=== PATIENT | male | born 1980 | race Caucasian/White ===

== ENCOUNTER 2021-10-01 15:45 | Emergency (ER) | payer OTHER ==
[~2021-10-01] VITALS: Wt 59.1 kg
[2021-10-01] MEDS ORDERED: PREDNISONE20 M1 PO (16:23)
[2021-10-01 16:33] VITALS: BP 115/75
== END 2021-10-01 16:34 | disposition home or self-care (01) ==
LOC: ED 15:45
DX: L23.7 Allergic contact dermatitis due to plants, except food (principal); Z28.310 Unvaccinated for COVID-19